=== PATIENT | female | born 1970 | race African-American/Black ===

== ENCOUNTER 2018-03-07 10:28 | Emergency (ER) | payer OTHER ==
[~2018-03-07] VITALS: Ht 175.3 cm; Wt 112.0 kg
[~2018-03-07 10:28] MED LIST: IBUPROFEN600 MG ORAL; LEVAQUIN750 MG ORAL
[2018-03-07] MEDS ORDERED: EYE DROPS15 M1 OP (10:44)
[2018-03-07 11:03] VITALS: BP 128/102
[2018-03-07 11:21] LABS: APPEARANCE,URINE SLIGHTLY CLOUDY; BILIRUBIN, URINE NEGATIVE (NEGATIVE); COLOR,URINE PALE YELLOW; GLUCOSE, URINE (UA) NEGATIVE (NEGATIVE); KETONES,URINE NEGATIVE (NEGATIVE); LEUKOCYTE ESTERASE ,URINE NEGATIVE (NEGATIVE); NITRITE,URINE NEGATIVE (NEGATIVE); PH,URINE 5 (4.5-8.0); PROTEIN,URINE NEGATIVE (NEGATIVE); UROBILINOGEN,URINE NORMAL MG/DL (0.0-1.0)
[2018-03-07] MEDS ORDERED: Ketorolac 60mg Inj IM ONE (12:15)
--- NOTE | 2018-03-07 12:29 | Emergency Room Report ---
History of Present Illness General Chief Complaint: Pain Source: Patient Present Illness HPI This patient c/o left flank/midlower abdomen pain, similar to many prior episodes of "ovarian cyst" pain but friend said "it might be your kidney" so she came to get that checked. There is no hematuria, dysuria. Pt. has had frequent US in the past for left ovarian (multiple) cysts. No fever, no vag d/c. Allergies: Coded Allergies: No Known Allergies (Unverified , 11/10/14) Nursing Documentation-[facility] Past Medical History: No History, Except For Review of Systems Constitutional: Reports: no symptoms Eye: Reports: no symptoms ENT: Reports: no symptoms Respiratory: Reports: no symptoms Cardiovascular: Reports: no symptoms Gastrointestinal: Reports: no symptoms Genitourinary: Reports: no symptoms Musculoskeletal: Reports: no symptoms Skin: Reports: no symptoms Psychiatric: Reports: no symptoms Neurological: Reports: no symptoms Endocrine: Reports: no symptoms Hematologic/Lymphatic: Reports: no symptoms Allergic: Reports: no symptoms All Other Systems: negative except mentioned in HPI Physical Exam Vital Signs Date Time Temp Pulse Resp B/P (MAP) Pulse Ox O2 Delivery O2 Flow Rate FiO2 03/07/18 10:39 96.6 59 17 142/80 98 Room Air Sp02 EP Interpretation: reviewed, normal General Appearance: normal inspection, well appearing, no apparent distress, alert, GCS 15, non-toxic, obese Head: normocephalic, atraumatic Eyes: bilateral eye normal inspection, bilateral eye PERRL, bilateral eye EOMI ENT: normal ENT inspection, hearing grossly normal, normal pharynx, no angioedema, normal voice, moist mucus membranes Neck: normal inspection, full range of motion, supple, no meningismus, no bony tend Respiratory: normal inspection, lungs clear, normal breath sounds, no rhonchi, no respiratory distress, no retraction, no accessory muscle use, no wheezing Cardiovascular #1: normal inspection, regular rate, rhythm, no edema Gastrointestinal: normal inspection, normal bowel sounds, soft, no mass, non- distended, other - mild left lower abd tender Musculoskeletal: gait/station normal, normal range of motion, other - mild left cva tender Neurologic: normal inspection, alert, oriented x3, responsive, motor strength/ tone normal Psychiatric: normal inspection, judgement/insight normal, memory normal Suicide Risk Assessment: Suicidal Ideation: No Had intent to initiate attempt: No Pt's plan for suicide attempt: No Has means to complete attempt: No Skin: normal inspection, normal color, no rash, warm/dry Medical Decision Making Diagnostic Impression: Primary Impression: Pain ER Course chronic issue; continue same as outlined by PMD Last Vital Signs Date Time Temp Pulse Resp B/P (MAP) Pulse Ox O2 Delivery O2 Flow Rate FiO2 03/07/18 11:03 97.9 61 22 128/102 100 Room Air Disposition: HOME, SELF-CARE Condition: Stable Referrals: SHAN ALTAMIRANO,REFERRING (PCP) Patient Instructions: Abdominal Pain, Adult Marcell Leos M.D. Mar 07, 2018 12:29
[2018-03-07 12:49] VITALS: BP 128/102
== END 2018-03-07 12:57 | disposition home or self-care (01) ==
LOC: EMR 11:19
DX: R10.9 Unspecified abdominal pain (principal)
CPT/HCPCS: 81001; 81025; 87086; 96372; 99283